=== PATIENT | female | born 1940 | race Caucasian/White ===

== ENCOUNTER 2017-11-21 12:12 | Emergency (ER) | payer MEDICARE, BC ==
--- NOTE | 2017-11-21 15:12 | RAD ---
Indication: Hematoma, infection. CT of the right lower leg was performed without IV contrast. There is no fracture of the tibia or fibula. There is a fluid collection in the subcutaneous tissue measuring 11.4 x 2.9 x 1.2 cm. This is nonspecific and may represent a seroma or hematoma. It is multiloculated in nature. IMPRESSION: Fluid collection in the anterior subcutaneous tissue measuring 11.4 x 2.9 x 1.2 cm may represent a seroma or hematoma. It is multiloculated in nature.
--- NOTE | 2017-11-21 17:20 | RAD ---
Indication: Right leg edema.. Duplex Doppler sonography of the deep venous system of the right lower extremity deep venous system was performed. Bilaterally the common femoral veins appear patent and compressible. Right proximal greater saphenous vein, proximal deep femoral vein, femoral vein, popliteal vein, posterior tibial veins and peroneal veins appear patent and compressible. IMPRESSION: NO EVIDENCE OF DEEP VENOUS THROMBOSIS IS IDENTIFIED.
--- NOTE | 2017-11-21 17:32 | ED ---
Lower Extremity - HPI Summary HPI Summary: Patient presents to the ED with CC of right lower extremity. PT states she fell down the stairs 10 days ago, and has a wound on her anterior RT lower leg. She has been taking bactrim and mupirocin ointment prescribed by her son who is a physician. She states she feels as though the area has worsened. Worsening swelling to just the lateral side of the abrasion which is tender to the touch. Warmth and redness around the wound. She continues to ambulate well. She takes tramadol for pain. Denies fevers, sweats or chills. - History of Current Complaint Chief Complaint: EDExtremityLower Stated Complaint: WOUND ON LEG Time Seen by Provider: 11/21/17 13:30 Hx Obtained From: Patient Mechanism Of Injury: Direct Blow Onset of Pain: Minutes Onset/Duration: Minutes Severity Initially: Moderate Severity Currently: Moderate Pain Intensity: 7 Pain Scale Used: 0-10 Numeric Timing: Constant Location: Is Discrete @ - right lower extremity Character Of Pain: Aching Associated Signs And Symptoms: Positive: Swelling, Redness Aggravating Factor(s): Standing, Ambulation Alleviating Factor(s): Rest Able to Bear Weight: No - Risk Factors Gout Risk Factors: Negative DVT Risk Factors: Negative Septic Arthritis Risk Factor: Negative - Allergies/Home Medications Allergies/Adverse Reactions: Allergies Allergy/AdvReac Type Severity Reaction Status Date / Time Codeine Allergy Rash Verified 11/21/17 12:21 Niacin Allergy Anaphylatic Verified 11/21/17 12:21 Shock Home Medications: Home Medications Escitalopram Oxalate [Lexapro 20 mg] 20 mg PO DAILY 11/21/17 [History Confirmed 11/21/17] PMH/Surg Hx/FS Hx/Imm Hx Previously Healthy: Yes - Surgical History Surgery Procedure, Year, and Place: L-spine fusion - Immunization History Hx Pertussis Vaccination: No Immunizations Up to Date: Unable to Obtain/Confirm Infectious Disease History: No Infectious Disease History: Denies: Traveled Outside the [place] in Last 30 Days - Social History Occupation: Employed Full-time Lives: With Family Alcohol Use: Daily Alcohol Amount: wine Hx Substance Use: No Substance Use Type: Reports: None Smoking Status (MU): Never Smoked Tobacco Review of Systems Constitutional: Negative Negative: Fever, Chills, Fatigue, Skin Diaphoresis Eyes: Negative Cardiovascular: Negative Respiratory: Negative Genitourinary: Negative Positive: no symptoms reported, see HPI Musculoskeletal: Negative Neurological: Negative Psychological: Normal All Other Systems Reviewed And Are Negative: Yes Physical Exam Triage Information Reviewed: Yes Vital Signs On Initial Exam: Initial Vitals Temp Pulse Resp BP Pulse Ox 96.8 F 94 16 151/85 95 11/21/17 12:15 11/21/17 12:15 11/21/17 12:15 11/21/17 12:15 11/21/17 12:15 Vital Signs Reviewed: Yes Appearance: Positive: Well-Appearing, Well-Nourished Skin: Positive: Erythema @ - right anterior leg Head/Face: Positive: Normal Head/Face Inspection Eyes: Positive: EOMI, VANDANA, Conjunctiva Clear Neck: Positive: Supple, No Lymphadenopathy Respiratory/Lung Sounds: Positive: Clear to Auscultation Cardiovascular: Positive: Pulses are Symmetrical in both Upper and Lower Extremities Musculoskeletal: Positive: Strength/ROM Intact Neurological: Positive: Speech Normal Psychiatric: Positive: Affect/Mood Appropriate AVPU Assessment: Alert Diagnostics - Vital Signs Vital Signs Temp Pulse Resp BP Pulse Ox 11/21/17 12:15 96.8 F 94 16 151/85 95 - Laboratory Lab Statement: Any lab studies that have been ordered have been reviewed, and results considered in the medical decision making process. Lower Extremity Course/Dx - Course Course Of Treatment: CT of the right lower leg was performed without IV contrast. There is no fracture of the tibia or fibula. There is a fluid collection in the. subcutaneous tissue measuring 11.4 x 2.9 x 1.2 cm. This is nonspecific and may represent a. seroma or hematoma. It is multiloculated in nature. IMPRESSION: Fluid collection in the anterior subcutaneous tissue measuring 11.4 x 2.9 x. 1.2 cm may represent a seroma or hematoma. It is multiloculated in nature. Negative for DVT. She is encouraged to continue the bactrim and the mupirocin ointment. On discharge, is very upset with the wait time, however I explained the official report from the radiologist generally takes awhile. I have requested Dr. Patel to see the wound. Patient left without being seen by Dr. Patel. I have encouraged them to take a photo of the wound and they have declined me drawing around the wound to assess worsening infection. They are discharged. I have given strict return precautions. - Diagnoses Differential Diagnosis/HQI/PQRI: Positive: Cellulitis, Contusion Provider Diagnoses: Hematoma Discharge - Discharge Plan Condition: Stable Disposition: HOME Patient Education Materials: Cellulitis (ED) Referrals: No Primary Care Phys,NOPCP [Primary Care Provider] - Additional Instructions: No evidence of a blood clot Continue on the bactrim as prescribed Continue with your mupirocin ointment Images - Images Full Body (No Head): 1 - erythema, warmth and swelling to the right lower leg
[2017-11-21 17:42] VITALS: BP 129/72
== END 2017-11-21 17:38 | disposition home or self-care (01) ==
LOC: ED 12:12
DX: S80.11XA Contusion of right lower leg, initial encounter (principal); W10.9XXA Fall (on) (from) unspecified stairs and steps, initial encounter; Y93.9 Activity, unspecified; Y92.9 Unspecified place or not applicable; Y99.9 Unspecified external cause status
CPT/HCPCS: 99282